=== PATIENT | female | born 2005 | race Caucasian/White ===

== ENCOUNTER 2023-12-15 11:21 | Emergency (ER) | payer OTHER ==
[~2023-12-15] VITALS: Ht 167.6 cm; Wt 75.0 kg
== END 2023-12-15 12:10 | disposition home or self-care (01) ==
LOC: ER 11:21
DX: S69.91XA Unspecified injury of right wrist, hand and finger(s), initial encounter (principal); W27.3XXA Contact with needle (sewing), initial encounter; Y93.89 Activity, other specified; Y92.89 Other specified places as the place of occurrence of the external cause; Y99.8 Other external cause status
CPT/HCPCS: 99281

== ENCOUNTER 2024-11-01 07:29 | Outpatient (CLI) | payer BC, OTHER ==
[2024-11-01 08:16] LABS: BASOPHILS # (AUTO) 0.1 X10'3 (0-0.2); EOSINOPHILS # (AUTO) 0.1 X10'3 (0-0.9); EOSINOPHILS % (AUTO) 1.9 % (0-6); HEMATOCRIT 43.6 % (35.0-45.0); HEMOGLOBIN 15.2 g/dl (12.0-16.0); LYMPHOCYTES # (AUTO) 2.1 X10'3 (1.1-4.8); LYMPHOCYTES % (AUTO) 28.9 % (21-51); MEAN CORPUSCULAR HEMOGLOBIN 30.1 PG (27.0-31.0); MEAN CORPUSCULAR HGB CONC 34.7 g/dL (33.0-36.5); MEAN CORPUSCULAR VOLUME 86.8 FL (78-98); MEAN PLATELET VOLUME 7.8 FL (7.4-10.4); MONOCYTES # (AUTO) 0.5 X10'3 (0-0.9); MONOCYTES % (AUTO) 6.4 % (2-12); NEUTROPHILS # (AUTO) 4.6 X10'3 (1.8-7.7); NEUTROPHILS % (AUTO) 61.8 % (42-75); PLATELET COUNT 313 X10'3 (140-440); RED BLOOD COUNT 5.03 X10'6 (4.20-5.60); RED CELL DISTRIBUTION WIDTH 12.4 % (11.5-14.5); WHITE BLOOD COUNT 7.4 X10'3 (4.5-11.0)
[2024-11-01 08:32] LABS: IRON 67 UG/DL (49-151); TOTAL IRON BINDING CAPACITY 326 UG/DL (259-388)
[2024-11-01 08:33] LABS: % IRON SATURATION 21 % (11-46)
[2024-11-01 08:35] LABS: HEMOGLOBIN A1C 5.1 % (4.5-6.2)
[2024-11-01 08:52] LABS: ALANINE AMINOTRANSFERASE 48 U/L (12-78); ALBUMIN 4.3 G/DL (3.4-5.0); ALBUMIN/GLOBULIN RATIO 1.1 (1.1-1.5); ALKALINE PHOSPHATASE 104 IU/L (46-116); ANION GAP 8 (8-16); ASPARTATE AMINO TRANSFERASE 30 U/L (10-37); BILIRUBIN,TOTAL 0.4 MG/DL (0.1-1.0); BLOOD UREA NITROGEN 15 MG/DL (7-18); BUN/CREATININE RATIO 17.9 (10.0-20.0); CALCIUM 9.2 MG/DL (8.5-10.1); CHLORIDE 103 MMOL/L (99-107); CHOL/HDL RATIO 2.7 (0.00-4.99); CHOLESTEROL 175 MG/DL (0-200); CREATININE 0.84 MG/DL (0.40-0.90); FERRITIN 97 NG/ML (8-252); GLUCOSE 97 MG/DL (70-104); HDL CHOLESTEROL 64 MG/DL (35-60); LDL CHOLESTEROL 96 MG/DL (50-100); POTASSIUM 3.9 MMOL/L (3.5-5.1); SODIUM 137 MMOL/L (135-145); THYROID STIMULATING HORMONE 3.21 ulU/ml (0.34-4.50); TOTAL PROTEIN 8.2 G/DL (6.4-8.2); TRIGLYCERIDES 88 MG/DL (20-135); eGFR 86 ML/MIN
[2024-11-03 08:26] LABS: FOLATE SERUM(FOLIC) 16.6 ng/mL (>3.0)
== END 2024-11-01 23:59 | disposition home or self-care (01) ==
LOC: LAB 07:29
PROVIDERS: ATTEND Physician Assistant
DX: R53.83 Other fatigue (principal); Z00.00 Encounter for general adult medical examination without abnormal findings
CPT/HCPCS: 36415; 80053; 80061; 82306; 82607; 82728; 82746; 83036; 83540; 83550; 84443; 85025

== ENCOUNTER 2025-06-30 21:05 | Emergency (ER) | payer BC, OTHER ==
[~2025-06-30] VITALS: Ht 167.6 cm; Wt 70.9 kg
[2025-06-30 21:08] VITALS: BP 123/77; PULSE 84; RESP 16; TEMP 98.4; O2SAT 99
--- NOTE | 2025-06-30 21:22 | Physician Documentation ---
History of Present Illness ~ Chief Complaint: Needlestick Stated Complaint: CLEARANCE Time Seen by MD: 21:14 Primary Medical Doctor: DR PREETI ASCENCIO Patient presents to the emergency room after a needlestick. 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 No other injuries reported. Tetanus within 5 Years?: Yes Medication Reconciliation Allergies: Coded Allergies: No Known Allergies (Unverified , 06/30/25) Scheduled Emtricitabine/Tenofovir (Truvada 200 Mg-300 Mg Tablet), 1 TAB PO DAILY Review of Systems ROS All review of systems negative except as per HPI Physical Exam Vital Signs: Temperature: 98.4, Source: Oral, Heart Rate: 84, Respiratory Rate: 16, BP: 123/77, Pulse Oximetry: 99, Weight: 70.900 Physical Exam General: Patient is awake, alert, oriented x4 in no acute distress and well appearing.~ Head: Normocephalic and atraumatic. Eyes: Conjunctival normal. EOMI. PERRL. ENT: Mucous membranes moist. Neck: Supple, trachea is midline. Chest: Clear to auscultation bilaterally without rales, rhonchi, or wheezes. There is no accessory muscle use or retractions. Cardiac: RRR without murmurs, gallops, or rubs. Extremity: Small print pick on patient's radial aspect of her proximal 2nd digit on her left Progress Results/Orders Results/Orders Orders - SANDOR FORTE MD Hep B Core Ab, Igm (06/30/25 21:17) Hep B Core Ab, Tot (06/30/25 21:17) Hiv Ab 1&2 Rapid Scn (06/30/25 21:17) Vital Signs 06/30/25 21:08 Temp 98.4 Pulse 84 Resp 16 B/P (MAP) 123/77 Pulse Ox 99 Medical Decision Making Additional information obtaine: old records Findings Patient presents to the emergency room after needlestick. Possibility of hepatitis and HIV therefore exposure panel ordered and we will start Truvada. Differential Dx:Considerations: Include: Abrasion, Body Fluid Exposure, Contusion, Infectious disease expos., Laceration, Puncture wound, Other Departure Disposition: 01 HOME / SELF CARE / HOMELESS Impression: Primary Impression: Needlestick injury accident Condition: Stable Discharge Instructions: Needlestick and Sharps Injury Additional Instructions: Follow up with occupational health Referrals: NO PRIMARY CARE PROVIDER (PCP) Prescriptions Emtricitabine/Tenofovir (Truvada 200 Mg-300 Mg Tablet) 200 Mg-300 Mg Tablet 1 TAB PO DAILY for 30 Days, #30 TAB 0 Refills Prov: SANDOR FORTE MD 06/30/25 Signature Scribe Signature: No scribe Attestation: The note accurately reflects work and decisions made by me.Sandor Forte MD 06/30/25 21:22 SANDOR FORTE MD Jun 30, 2025 21:22
[2025-06-30] MEDS ORDERED: EMTR1TAB21 PO (21:26)
== END 2025-06-30 21:28 | disposition home or self-care (01) ==
LOC: ER 21:06
DX: Z77.21 Contact with and (suspected) exposure to potentially hazardous body fluids (principal); W46.0XXA Contact with hypodermic needle, initial encounter; Y93.89 Activity, other specified; Y92.89 Other specified places as the place of occurrence of the external cause; Y99.0 Civilian activity done for income or pay
CPT/HCPCS: 99283